=== PATIENT | female | born 1965 | race Caucasian/White ===

== ENCOUNTER 2022-03-06 15:39 | Outpatient (CLI) | payer OTHER ==
--- NOTE | 2022-03-06 16:43 | SLEEP CARE CONSULTATION ---
Information from patient questionnaire entered by Leana Perry. I have reviewed and concur with the information entered by Leana Perry. This document represents the service I personally performed and the decisions made by me, Keesha Gonzalez ARNP. History of Present Illness Service Date and Time: 03/06/2022 1539 Reason for Visit: New patient Chief Complaint: reports: Snoring, Other (REQUEST FROM NEUROLOGIST) Date of Onset: snoring most of life Usual bedtime: 11PM Time it takes to fall asleep: 10-15 MIN Snores at night: Yes Observed to quit breathing while asleep: No Sleeps alone due to snoring: No Number of times waking at night: MAYBE 1 Reasons for waking at night: reports: Bathroom. denies: Choking, Snoring, Gasping for air Toss, Turn, or Twitch while sleeping: Yes Recalls having dreams: Yes Usually gets out of bed at: 5AM; [id number] on weekends Feels refreshed in the morning: Yes Morning headache: No Sleepy or fatigued during the day: Yes (okay once she gets moving) Ever fallen asleep while driving: No Takes day naps: No Dreams during day naps: No Prior sleep studies: Yes ([facility] NO REPORT ON FILE, 17 yrs ago ) Additional HPI information: I had the pleasure of seeing LINDA VALDES today regarding the possibility of her having a sleep disorder. Her current complaint is snoring. She has snored for most of her life and it is not a problem. She is here at the request of her neurologist. She had brain surgery for an aneurysm 19 years ago. 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 She also had a stroke associated with the aneurysm and surgery. She started having seizures from the scar tissue in her brain. She has been on seizure medication Dilantin and Keppra for many years and her neurologist is concerned about break through seizures. They are also looking at changing her medications since she has been on them for so long and they are associated with problems with bone deterioration. She states she wakes up feeling rested. She denies morning headaches or waking up gasping for air at night. 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 - Parasomnia Symptoms Ever been unable to move upon waking from sleep: No Walks in sleep: No Talks in sleep: No Ever acted out dreams in sleep: No Ever felt weak in the knees when startled or emotional: No Bothered by creepy, crawly, restless sensations in legs: No Problems with memory or concentration: Yes (memory, probably from brain aneurysm/age) Subjective Initial [place] Sleepiness Scale score: 9 (03/06/22) Past Medical History Past Medical History: reports: Hypertension (well controlled on minimal medication), Arthritis, Other (SEIZURES DUE TO BRAIN SURGERY for aneurysm ) Social History The patient's occupation is a TEACHER. Patient is and lives in [place]. Have you smoked in the past 12 months: No Alcohol use: Yes Alcohol amount and frequency: 1-2 DRINKS MONTHLY Caffeine use: Yes Caffeine amount and frequency: 1 CUP TWICE A WEEK Family History Family history of sleep disordered breathing: Yes Family Hx Sleep Apnea: Mother: Snoring, Sleep apnea - Treated, Father: Snoring Allergies and Home Medications Known drug allergies: Yes (LATEX) Drug allergies reviewed: Yes Home medication list reviewed: Yes Allergy and home medication list: Medications: Dilantin Keppra Zyrtec Lisinopril Vitamin D3 Review of Systems Weight loss over past 5 years: 30 lbs since July- watching portions and reduce snack foods Cardiovascular: reports: high blood pressure Gastrointestinal: denies: heartburn Neurological: reports: seizure, gait or balance problems Ear/Nose/Throat: reports: tonsillectomy, wisdom teeth removed Endocrine: denies: thyroid disease Musculoskeletal: reports: joint pain, muscle pain or cramping Immunologic: reports: allergies to food or environment Physical Exam Vital signs obtained and entered by: LEANA Sexton MA Blood Pressure: 138/74 (LEFT ARM) Cuff size: regular Heart Rate: 71 O2 Saturation: 98 Height: 5 ft 6 in Weight: 238 lb 9.6 oz Body Mass Index: 38.5 BMI Classification: Obese Neck circumference: 15 Mouth and throat: narrow oropharynx Soft palate: long Hard palate: normal Uvula: normal Uvula visualization: 25% Mallampati Class III Tongue: enlarged in size with teeth funes on lateral edges Tonsils: absent bilaterally Neck: normal w/o lymphadenopathy or thyromegaly Heart: regular rate and rhythm Lungs: clear bilaterally Impression and Plan 1. Suspected Obstructive Sleep Apnea-Hypopnea Syndrome, as suggested by a history of loud and irregular snoring and excessive daytime sleepiness. Narrow oropharynx and obesity are common predisposing factors for obstructive sleep apnea-hypopnea syndrome. I recommend proceeding to polysomnography to confirm the diagnosis and to assess severity. If the patient has significant sleep disordered breathing, a manual CPAP titration study will also be performed to find the optimal treatment pressure. I informed the patient of what the sleep studies involve and after some discussion, obtained agreement to proceed. The pathophysiology of obstructive sleep apnea-hypopnea syndrome was discussed with the patient and health risks of cardiovascular and cerebrovascular disease if not treated. Risks of drowsy driving discussed in detail and patient advised to avoid long distance driving and to rod puller at the first sign of drowsiness. Patient agreed to plan. * Schedule polysomnography * Avoid long distance driving or driving when feeling sleepy. * Avoid alcohol, sedative and muscle relaxant around bedtime. * Attempt to lose weight. * Review instructions provided by trained office staff on how to prepare for the sleep study. * Return for follow-up after sleep study completed. Counseling Topics: Weight loss health impact Visit Type: In Office Time Spent with Patient (minutes): 38 Provider Statement: I spent 100% of the Face to Face Visit with the patient with greater than 50% spent counseling the patient and coordination of care.
[2022-03-06 16:44] VITALS: BP 138/74
== END 2022-03-06 15:40 | disposition home or self-care (01) ==
LOC: SC 15:39
PROVIDERS: ATTEND Nurse Practitioner Family
DX: R06.83 Snoring (principal); G47.10 Hypersomnia, unspecified; E66.9 Obesity, unspecified; Z68.38 Body mass index [BMI] 38.0-38.9, adult
CPT/HCPCS: 99203; 99212

== ENCOUNTER 2022-04-06 19:32 | Outpatient (CLI) | payer OTHER | END 2022-04-06 19:33 | disposition home or self-care (01) | LOC: SC 19:32 | PROVIDERS: ATTEND Nurse Practitioner Family | DX: G47.33 Obstructive sleep apnea (adult) (pediatric) (principal); G47.61 Periodic limb movement disorder | CPT/HCPCS: 95810 ==